=== PATIENT | female | born 1990 | race Caucasian/White ===

== ENCOUNTER 2022-12-20 09:26 | Outpatient (CLI) | payer OTHER, SELFPAY ==
--- NOTE | 2022-12-20 09:49 | ECG_ITS ---
Measurements Intervals [place] Rate: 67 P: 28 WA: 157 QRS: 32 QRSD: 82 T: 38 QT: 407 QTc: 430 Interpretive Statements SINUS RHYTHM POSSIBLE RIGHT VENTRICULAR CONDUCTION DELAY [RSR (QR) IN V1/V2] NO PREVIOUS ECG AVAILABLE FOR COMPARISON Electronically Signed On 12-20-2022 13:33:27 CDT by Viv Daniels M.D.
== END 2022-12-20 09:27 | disposition home or self-care (01) ==
LOC: ANHSURGERY 09:32
PROVIDERS: PCP Physician Assistant; Visit Provider Obstetrics & Gynecology
DX: G90.A Postural orthostatic tachycardia syndrome [POTS] (principal); N93.9 Abnormal uterine and vaginal bleeding, unspecified
CPT/HCPCS: 36415; 86850; 86900; 86901; 93005

== ENCOUNTER 2022-12-24 08:20 | Outpatient (CLI) | payer OTHER, SELFPAY ==
--- NOTE | ~2022-12-24 | US_ITS ---
US breast BI complete DATE: 12/24/2022 08:56 INDICATION: Bilateral milky nipple discharge for a couple of months, intermittent breast tenderness. No palpable lumps. TECHNIQUE: Real-time and color flow imaging imaging of all 4 quadrants and subareolar area COMPARISON: None FINDINGS: Right breast: 2:00 subareolar: 3.8 x 5.1 x 4.3 mm circumscribed sonolucency with through transmission and posterior enhancement, no internal vascularity, consistent with benign cyst 9:00 5 cm from nipple: 2.6 x 3.5 x 4.4 mm hypoechoic area with through transmission, posterior enhanc ement, no internal vascularity, benign in appearance Subareolar: Parallel circumscribed 2.3 x 4.6 x 5.9 mm sonolucency, benign in appearance Subareolar: 4.8 x 6.6 x 8.5 mm mildly irregular hypoechoic solid lesion with minimal positive color f low signal. Ultrasound-guided biopsy is recommended. Left breast: 8:00 3 cm from nipple: Parallel circumscribed 2 x 7.4 x 6 mm hypoechoic lesion without internal vascu larity or posterior shadowing, likely benign 9:00 5 cm from nipple: 2.3 x 5 x 3.6 mm irregular complex mixed sonolucent and solid lesion without i nternal vascularity or posterior shadowing; ultrasound-guided biopsy is recommended. IMPRESSION: 1. 4.8 x 6.6 x 8.5 mm mildly irregular hypoechoic solid lesion of right subareolar area; ultrasound-g uided biopsy is recommended 2. 2.3 x 5 x 3.6 mm irregular complex lesion of left breast at 9:00 5 cm from nipple; ultrasound-guid ed biopsy is recommended BI-RADS Category 4: Suspicious abnormalities; biopsy should be considered Reviewed, dictated and finalized at [facility]. Reviewed, dictated and finalized at [facility]. IMPRESSION: 1. 4.8 x 6.6 x 8.5 mm mildly irregular hypoechoic solid lesion of right subareo lar area; ultrasound-guided biopsy is recommended 2. 2.3 x 5 x 3.6 mm irregular complex lesion of left breast at 9:00 5 cm from n ipple; ultrasound-guided biopsy is recommended BI-RADS Category 4: Suspicious abnormalities; biopsy should be considered
== END 2022-12-24 08:21 ==
PROVIDERS: PCP Physician Assistant; Visit Provider Obstetrics & Gynecology
DX: N64.52 Nipple discharge (principal); N63.41 Unspecified lump in right breast, subareolar; N64.9 Disorder of breast, unspecified
CPT/HCPCS: 76641

== ENCOUNTER 2022-12-25 00:36 | Day surgery (SDC) | payer OTHER, SELFPAY ==
[2022-12-19 10:42] VITALS: BMI 23.7
--- NOTE | 2022-12-19 10:44 | SUR.PREOP ---
Report to the Outpatient Waiting Room, entrance under the green pavilion located off [facility], at time 0700__ on date 12/25/22 . Planned Procedure Time: _0900 . Time changes happen often and if your time is changed the preop area will call you the afternoon before. - You and your visitor will be asked to self-screen and do not enter if you have any COVID symptoms. - A mask is optional within the hospital at this time. Patients may have clear liquids (water, carbonated beverages, clear teas, apple juice) until 3 hours prior to surgery with a maximum of 20 ounces. - No food from midnight until time of surgery - Infants may have breast milk until 4 hours before surgery, infant formula 6 hours prior to surgery. - Children will be allowed to drink immediately following surgery. If applicable, please bring a bottle or sippy cup to assist with drinking. Juice, water, soda, and popsicles are readily available. For infants on formula, please bring formula the day of surgery. Pacifiers are allowed. Take the following medications with a SIP of water the morning of surgery: _propanolol,escitalopram DO NOT STOP ANY OF YOUR OTHER PRESCRIPTION MEDICATIONS PRIOR TO SURGERY ?EXCEPT THE FOLLOWING Medications to discontinue per physician n/a Date to take last dose_n/a Please no make-up, nail sami, hairspray, perfume, deodorant, or body powder the day of surgery. No jewelry (including any body piercings) or valuables the day of surgery, leave them at home. Please take a shower or bath the night before, or the morning of, surgery with an antibacterial soap. Wear comfortable, loose fitting clothing. Children are encouraged to wear pajamas. - Jewelry must be removed prior to entering the operating room. Rings and piercings that are not removed may be cut off. - The hospital will not accept responsibility for valuables. - Please leave all valuables, including medications, at home the day of surgery. If you are going home after surgery, a licensed bulk delivery driver must drive you home. - NO public transportation without another adult if you receive anesthesia. - We recommend that an adult stay with you for 24 hours following discharge. - We also recommend that you do not drive, make important decision, drink alcoholic beverages, or take any drugs that were not prescribed by your health care provider for at least 24 hours after your discharge time. For Pediatric surgeries, we recommend two adults accompany the child home. Follow any additional instructions given to you from your surgeon. If you or anyone in your household have experienced Covid symptoms in the past week, please notify your surgeon or the nurse liaison at the phone number below for possible testing. Telephone instructions given to _marie sheridan and asked if any additional questions and then verbalized understanding. Patient advised to call surgeon office or pre surgery nurse liaison [phone] if any additional questions.
--- NOTE | 2022-12-24 10:33 | PCCCNOTE ---
Addendum entered by Shruthi Meyers RN 12/24/22 19:14: Return phone call received from Adela stating that no prior auth is required and call reference # is [id number] Addendum entered by Shruthi Meyers RN 12/24/22 15:00: No return call from Adela, called back to Dr. Steen's office sw [employer] medical detail representative, she states that per [employer] call reference [id number] No prior auth is required. Original Note: Per pre-reg notes: Precert in process- Called to Dr. Steen's office provided # for Adela at [phone], Called Adela and left a vm requesting a callback regarding authorization.
[2022-12-25] VITALS (12 sets, daily range): BP systolic 91–108; BP diastolic 56–78; PULSE 61–80; RESP 12–20; TEMP 36.3–36.6; O2SAT 94–100
[2022-12-25] MEDS: ACETAMINOPHEN 500 MG TABLET 1000 MG PO (07:39)
[2022-12-25] MEDS: LACTATED RINGERS 1,000 ML 30 ML IV CONT ×2 (07:46→11:28)
[2022-12-25] MEDS: KETOROLAC 15 MG/ML VIAL (*BKC) IV PUSH (07:51)
--- NOTE | 2022-12-25 08:49 | SUR.PREOP ---
pt informed delay in procedure
--- NOTE | 2022-12-25 09:13 | P.PNAN_ITS ---
Anes - Initial Pre Proc Eval Procedure: Operation Date: 12/25/22 09:00 Proposed Procedures p Total Laparoscopic Hysterectomy with Bilateral Salpingectomy - Alvin Steen MD Date/Time: 12/25/22 09:13 Surgeon: Alvin Steen MD Pre Op Diagnosis: Menorrhagia Patient Data Age: 32 Gender: F Height: 1.68 m Weight: 66.5 kg Last Vital Signs Temp 97.8 F 12/25/22 06:46 Pulse 72 12/25/22 06:46 Resp 16 12/25/22 06:46 BP 106/62 12/25/22 06:46 Pulse Ox 98 12/25/22 06:46 O2 Del Method Room Air 12/25/22 06:46 Allergies Allergy/AdvReac Type Severity Reaction Status Date / Time No Known Allergies Allergy Unverified 12/25/22 07:35 Home Medications Medication Instructions Recorded Confirmed Type escitalopram oxalate 10 mg tablet 10 mg PO DAILY 12/19/22 12/25/22 History propranolol 10 mg tablet 10 mg PO DAILY 12/19/22 12/25/22 History sumatriptan succinate 50 mg tablet 50 mg PO PRN 12/19/22 12/25/22 History topiramate 25 mg tablet 25 mg PO BID 12/19/22 12/25/22 History omeprazole 40 mg capsule,delayed 40 mg PO DAILY 12/25/22 12/25/22 History release Patient hx anesthesia problems: none Family hx anesthesia problems: none Results Review: All pre-operative results and documents have been reviewed as part of the pre- operative evaluation. FOR[facility]LY [facility] Social History Social History Smoking status: Former smoker Tobacco type: cigarettes and e-cigarettes/vaping Smoking end date: 08/01/17 Additional smoking assessment comments: cigarettes 1ppd x 15 years Alcohol use details: socially Living arrangements: with family Spiritual care concerns: No Anes - Eval Final PreProcedure Day of Procedure 12/25/22 09:13 Patient weight: normal Heart: regular rate and rhythm Lungs: clear to auscultation Airway: Mallampati scale class II Neurological: alert and oriented Last oral intake: >/= 8 hours ASA classification: II Emergent: no Anesthetic plan: proceed Anesthesia type and monitoring: general ETT and standard monitoring Results Review: All pre-operative results and documents have been reviewed as part of the pre- operative evaluation. Informed Consent: The patient's anesthetic plan and its attendant risks and benefits were discussed with the patient/family/POA. Questions were solicited and answers provided to the satisfaction of the patient/family/POA.
--- NOTE | 2022-12-25 09:16 | WPDHPUPDATE1 ---
History and Physical Update Update Date/Time: 12/25/22 09:16 History and Physical has been reviewed, including an updated exam of the patient. There are NO changes in the patient's condition. Risks, benefits, and alternatives have been discussed and questions answered. Patient agrees to proceed with procedure.
[2022-12-25] MEDS: ceFAZolin 2 GM/D5W 50 ML 2 GM/50 ML BAG IVPB (09:29)
[2022-12-25] MEDS: ceFAZolin SODIUM 1 GM VIAL (09:29)
--- NOTE | 2022-12-25 11:08 | SUR.OPER ---
EBL:200, URINE:100ml
--- NOTE | 2022-12-25 11:22 | W.PM.PROC2 ---
Procedure Note - Detailed Date of Procedure 12/25/22 Pre-op Diagnosis Menorrhagia Post-op Diagnosis Same Procedure Performed Total laparoscopic hysterectomy. Surgeon Alvin Steen MD Anesthesia General Indications menorrhagia Findings Normal appearing tubes and ovaries, mildly enlarged uterus Description of Procedure This patient was taken to the operating room. She was prepped and draped in the dorsal lithotomy position after induction of general anesthesia. The uterine manipulator and Wanda cup were placed. This was done with a speculum and tenaculum. The speculum was placed. The cervix was grasped with a tenaculum. The stay sutures were placed at 3 and 9:00 a.m.. The stay sutures of 0 Vicryl were brought through the appropriately sized Wanda cup. The tip of the ELISSA manipulator was placed in the intrauterine cavity. The cup was slid into place around the cervix and into the fornices. It was locked into place. The sutures were then wrapped around the handle and tied under tension. A 5 mm skin incision was made in the left upper quadrant the abdomen. A 5 mm trocar was inserted into the intrauterine cavity under direct visualization of the scope. Pneumoperitoneum was achieved. A left lower quadrant 11 mm incision was made with scalpel. An 11 mm trocar was inserted into the anterior abdominal cavity under direct visualization the scope. A 5 mm infraumbilical incision was made with a scalpel and a 5 mm trocar was inserted the intra-abdominal cavity under direct visualization of the scope. Bilateral ureteral lysis was performed. This was done from the pelvic brim down to the uterine artery. This was done with careful dissection using sharp and blunt dissection. The fallopian tubes were removed bilaterally. The mesosalpinx around the fallopian tubes were cauterized transected with LigaSure cautery. This was done in a bilateral fashion from the ovary to the uterine cornua. The fallopian tube was transected at the uterine cornu and amputated. The tube was taken out the left lower quadrant trocar site. In a stepwise fashion along the lateral aspects of the uterus the round ligament and broad ligaments were cauterized transected down to the level of the uterine arteries. A bladder flap was created in the bladder was moved distally to the end of the cervix and over the Wanda cup. The bilateral uterine arteries were cauterized and transected. Colpotomy was then performed. In a circumferential fashion the vagina was transected using unipolar cautery. The incision was made down on the Wanda cup. The uterus and cervix were taken out through the vagina. A pneumo occluder was placed in the vagina. The vaginal cuff was closed with a 0 V lock suture in a running fashion. The pelvis was irrigated with copious amounts antibiotic irrigation. The ureters were again examined and found to be intact and flowing freely under the uterine arteries into the bladder. The bladder was intact. It was examined directly. The vagina was irrigated with Betadine solution after removal of the Pneumo occluder. The patient was taken to recovery room. She was stable condition. Sponge lap and needle counts were correct x2. Drains Yes Packing No Pathology Yes Complications No immediate complications Condition Stable Disposition Floor
[2022-12-25] MEDS: fentaNYL CITRATE INJ (*CRX) 100 MCG/2 ML VIAL 25 MCG IV PUSH ×2 (12:17→12:26)
--- NOTE | 2022-12-25 12:56 | ADMGEN ---
This patient, Cecy Pearl, was admitted to OB 2nd Floor Room 289-00. Patient/family oriented to hospital policies and general routines including ID bracelet, bed and alarms, visiting hours, pain management, procedures, bathroom and other care routines, personal items, smoking policy, room service/diet, and visiting hours. Information on how to activate the Rapid Response Team has been discussed. Patient/Family are encouraged to report perceived risks to care and to ask questions if they do not understand what they are told or what they should do.
[2022-12-25] MEDS: ONDANSETRON INJ 4 MG/2 ML VIAL IV PUSH (13:36)
[2022-12-25] MEDS: KETOROLAC 30 MG/ML VIAL (*BKC) IV PUSH (13:37)
[2022-12-25] MEDS: HYDROcodone/acetaminophen (*CRX) 5-325 MG TABLET 1 TAB PO ×2 (17:21→22:57)
[2022-12-25] MEDS: IBUPROFEN 600 MG TABLET PO (19:48)
[2022-12-25] MEDS: TOPIRAMATE 25 MG TABLET PO (19:49)
[2022-12-25] MEDS: PANTOPRAZOLE 40 MG TABLET PO (19:49)
[2022-12-25] MEDS: SUMAtriptan SUCCINATE 25 MG TABLET 50 MG PO (19:50)
[2022-12-26] MEDS: HYDROcodone/acetaminophen (*CRX) 5-325 MG TABLET 1 TAB PO ×4 (02:06→12:14)
[2022-12-26] MEDS: IBUPROFEN 600 MG TABLET PO ×2 (02:06→09:08)
[2022-12-26 02:30] VITALS: BP 100/60; PULSE 72; RESP 18; TEMP 37.1; O2SAT 97
[2022-12-26 05:48] LABS: Basophils Percent Auto 0.2 % (0.2-1.2); Eosinophils Percent Auto 0.1 % (0-4.4); Hematocrit 33.1 % (37.0-47.0); Hemoglobin 11.4 g/dL (12.0-15.0); Immature Granulocyte Absolute 0.06 K/mm3 (0.00-0.031); Immature Granulocyte Percent A 0.4 % (0-0.5); Lymphocytes Absolute Auto 2.31 K/mm3 (0.9-3.2); Lymphocytes Percent Auto 15.7 % (18.3-44.2); Mean Corpuscular HGB Conc 34.4 g/dl (32-36); Mean Corpuscular Hemoglobin 30.6 pg (26-34); Mean Corpuscular Volume 88.7 fl (80-100); Mean Platelet Volume 10.6 fl (7.4-10.4); Monocytes Absolute Auto 1.1 K/mm3 (0.1-0.6); Monocytes Percent Auto 7.4 % (2.6-8.5); Neutrophils Absolute Auto 11.3 K/mm3 (1.3-6.7); Neutrophils Percent Auto 76.2 % (45.5-73.1); Platelet Count Result 170 k/mm3 (150-375); Red Blood Count 3.73 M/mm3 (4.2-5.4); Red Cell Distribution Width 11.9 % (11.5-14.5); White Blood Count 14.8 K/mm3 (4.5-10.0)
[2022-12-26 08:10] VITALS: BP 93/56; PULSE 68; RESP 18; TEMP 37.5; O2SAT 99
[2022-12-26 09:07] VITALS: PULSE 68
[2022-12-26] MEDS: PROPRANOLOL HCL 10 MG TABLET PO (09:07)
[2022-12-26] MEDS: ESCITALOPRAM OXALATE 10 MG TABLET PO (09:07)
[2022-12-26] MEDS: TOPIRAMATE 25 MG TABLET PO (09:07)
[2022-12-26] MEDS: PANTOPRAZOLE 40 MG TABLET PO (09:07)
--- NOTE | 2022-12-26 10:04 | WPDANESPN ---
Anes - Prog Note Post-Op Date/Time: 12/26/22 10:04 Cardiovascular status: normal Respiratory status: normal Airway patency: baseline Mental status: baseline Post-Op hydration status: normal Vital Signs: Last Vital Signs Temp 99.5 F 12/26/22 08:10 Pulse 68 12/26/22 09:07 Resp 18 12/26/22 08:10 BP 93/56 L 12/26/22 08:10 Pulse Ox 99 12/26/22 08:10 O2 Del Method Room Air 12/26/22 02:30 O2 Flow Rate 2 12/25/22 13:00 Pain Score (VAS): 0/10 I/O: Intake & Output 12/25/22 12/26/22 12/26/22 23:59 07:59 15:59 Output Total 450 Balance -450 Laboratory Tests 12/26/22 05:30 12/26/22 05:30 WBC 14.8 H RBC 3.73 L Hgb 11.4 L Hct 33.1 L MCV 88.7 MCH 30.6 MCHC 34.4 RDW 11.9 Plt Count 170 MPV 10.6 H Immature Gran % (Auto) 0.4 Neut % (Auto) 76.2 H Lymph % (Auto) 15.7 L [place] % (Auto) 7.4 Eos % (Auto) 0.1 Baso % (Auto) 0.2 Lymph # (Auto) 2.31 [place] # (Auto) 1.1 H Eos # (Auto) 0.0 Baso # (Auto) 0.0 Abs Immat Gran (auto) 0.06 H Absolute Neuts (auto) 11.3 H Absolute Nucleated RBC 0.0 Nucleated RBC % 0.0 Post-procedural complaints: none Patient Feedback: Patient satisfied with anesthetic care.
--- NOTE | 2022-12-26 12:24 | PM.GYNPNOP ---
FIRE OBSERVER - A/P Postoperative Procedures: Procedures Operation Date: 12/25/22 09:00 Actual Procedure Side Surgeon p Total Laparoscopic Hysterectomy with Bilateral Salpingectomy Bilateral Alvin Steen MD Postoperative day: 1 Postoperative status: doing well Postoperative plan: see orders Time Spent With Patient Time: Total time spent is greater than 50% in coordination of care (as documented) at patient's floor/unit and/or counseling patient: Time with patient: 15 - 25 minutes FIRE OBSERVER- PN:Subj Post-Op Subjective Date/time seen: 12/26/22 12:24 Subjective: patient reports feeling better, patient has no complaints and pain is well controlled Exam Const: General: healthy appearing, comfortable and no acute distress Resp: Auscultation: clear to auscultation bilaterally, no rales, no rhonchi and no wheezes Cardio: Rate: regular rate Heart sounds: no click, no murmurs and no rubs GI: Inspection: non-distended Auscultation: normal bowel sounds Extrem: General: normal to inspection, no pedal edema and no calf tenderness FIRE OBSERVER - PN: Obj Data Vital Signs Vital Signs: Vital Signs - 24 hr 12/25/22 12:30 12/25/22 12:45 12/25/22 13:00 Temperature 97.9 F Pulse Rate 70 70 68 Respiratory Rate 18 18 16 Blood Pressure 99/62 L 100/66 92/58 L Pulse Oximetry 95 94 100 Oxygen Delivery Room Air Room Air Oxygen Flow Rate 12/25/22 13:00 12/25/22 17:20 12/25/22 17:20 Temperature 97.9 F Pulse Rate 79 Respiratory Rate 16 Blood Pressure 104/61 Pulse Oximetry 100 100 Oxygen Delivery Nasal Cannula Room Air Oxygen Flow Rate 2 12/25/22 20:00 12/25/22 20:00 12/26/22 02:30 Temperature 98 F 98.8 F Pulse Rate 69 69 72 Respiratory Rate 18 18 18 Blood Pressure 91/56 L 100/60 Pulse Oximetry 94 94 97 Oxygen Delivery Room Air Oxygen Flow Rate 12/26/22 02:30 12/26/22 09:07 12/26/22 08:10 Temperature 99.5 F Pulse Rate 72 68 68 Respiratory Rate 18 18 Blood Pressure 93/56 L Pulse Oximetry 97 99 Oxygen Delivery Room Air Oxygen Flow Rate 12/26/22 07:55 Temperature Pulse Rate Respiratory Rate Blood Pressure Pulse Oximetry Oxygen Delivery Room Air Oxygen Flow Rate Intake/Output Intake/Output: Intake & Output 12/23/22 12/24/22 12/25/22 12/26/22 23:59 23:59 23:59 23:59 Intake Total 700 480 Output Total 450 Balance 250 480 Meds/Results Medications: Active Medications Generic Name Dose Route Start Last Admin Trade Name Freq PRN Reason Stop Dose Admin Hydrocodone Bitart/Acetaminophen 1 tab 12/25/22 12:51 Hydrocodone/Acetaminophen (*Crx) 10-325 Mg Tablet PO Q3H PRN Pain Rated 6 or Greater Hydrocodone Bitart/Acetaminophen 1 tab 12/25/22 12:51 12/26/22 12:14 Hydrocodone/Acetaminophen (*Crx) 5-325 Mg Tablet PO 1 tab Q3H PRN Administration Pain Rated 5 or Less Escitalopram Oxalate 10 mg 12/26/22 09:00 12/26/22 09:07 Escitalopram Oxalate 10 Mg Tablet PO 10 mg DAILY ROX Administration Ibuprofen 600 mg 12/25/22 12:51 12/26/22 09:08 Ibuprofen 600 Mg Tablet PO 600 mg Q6H PRN Administration Cramping Ketorolac Tromethamine 30 mg 12/25/22 12:51 12/25/22 13:37 Ketorolac 30 Mg/Ml Vial (*Bkc) IV PUSH 12/30/22 12:50 30 mg Q6H PRN Administration Pain Rated 4-6 Naloxone HCl 0.1 mg 12/25/22 12:51 Naloxone Hcl 0.4 Mg/Ml Vial IV PUSH Q2M PRN Respiratory rate less than 10 Ondansetron HCl 4 mg 12/25/22 12:51 12/25/22 13:36 Ondansetron Inj 4 Mg/2 Ml Vial IV PUSH 4 mg Q6H PRN Administration Nausea And Vomiting Pantoprazole Sodium 40 mg 12/25/22 21:00 12/26/22 09:07 Pantoprazole 40 Mg Tablet PO 40 mg Q12HR ROX Administration Propranolol HCl 10 mg 12/26/22 09:00 12/26/22 09:07 Propranolol Hcl 10 Mg Tablet PO 10 mg DAILY ROX Administration Sumatriptan Succinate 50 mg 12/25/22 12:51 12/25/22 19:50 Sumatriptan Succinate 25 Mg Tablet PO 50 mg
== END 2022-12-26 13:10 | disposition home or self-care (01) ==
LOC: ANHSURGERY 06:36 → ANHOB2 12:53
PROVIDERS: PCP Physician Assistant; Visit Provider Obstetrics & Gynecology
PROC: 0UT9FZZ Resection of Uterus, Via Natural or Artificial Opening With Percutaneous Endoscopic Assistance (ICD-10-PCS; CPT 58571; principal; 2022-12-25 09:00)
DX: N92.0 Excessive and frequent menstruation with regular cycle (principal); N72 Inflammatory disease of cervix uteri; N83.8 Other noninflammatory disorders of ovary, fallopian tube and broad ligament; Z87.891 Personal history of nicotine dependence
CPT/HCPCS: 58571; 36415; 85025; 88307; 99199; A9270; J0690; J1100; J1170; J1885; J2250; J2405; J2704; J3010; J7030; J7120